=== PATIENT | male | born 1985 | race African-American/Black ===

== ENCOUNTER 2016-11-25 22:12 | Emergency (ER) | payer MEDICAID ==
[~2016-11-25] VITALS: Ht 175.3 cm; Wt 75.3 kg
[2016-11-25 22:12] VITALS: BP_SYST 149
[2016-11-25] MEDS ORDERED: NACL 0.9% 1,000 ML IV ONE (22:30)
[2016-11-25 22:58] LABS: BASOPHILS % (AUTO) 0.5 % (0.0-2.0); EOSINOPHILS # (AUTO) 0.1 K/uL (0.0-0.4); EOSINOPHILS % (AUTO) 0.8 % (0.0-4.0); HEMATOCRIT 44.5 % (36-54); HEMOGLOBIN 14.6 g/dL (14.0-18.0); LYMPHOCYTES # (AUTO) 1.4 K/uL (1.0-5.5); LYMPHOCYTES % (AUTO) 17.5 % (20.5-51.5); MEAN CORPUSCULAR HEMOGLOBIN 28 pg (27-31); MEAN CORPUSCULAR HGB CONC 33 % (32-36); MEAN CORPUSCULAR VOLUME 86 fL (79.0-98.0); MONOCYTES # (AUTO) 0.7 K/uL (0.0-1.0); MONOCYTES % (AUTO) 8.3 % (1.7-9.3); NEUTROPHILS # (AUTO) 5.8 K/uL (1.8-7.7); NEUTROPHILS % (AUTO) 72.9 % (40.0-70.0); PLATELET COUNT (AUTO) 232 K/uL (130-430); RED BLOOD CELL COUNT(AUTO) 5.17 MIL/uL (4.2-6.2); RED CELL DISTRIBUTION WIDTH 12.4 % (9.0-15.0)
[2016-11-25 23:02] LABS: BILIRUBIN,URINE NEGATIVE (NEGATIVE); CLARITY/URINE CLEAR (CLEAR); COLOR,URINE YELLOW (YELLOW); GLUCOSE,URINE NEGATIVE (NEGATIVE); KETONES,URINE NEGATIVE (NEGATIVE); LEUKOCYTE ESTERASE ,URINE NEGATIVE (NEGATIVE); NITRITE, URINE NEGATIVE (NEGATIVE); PROTEIN URINE NEGATIVE (NEGATIVE); UROBILINOGEN,URINE 0.2 (0.2-1.0)
[2016-11-25 23:06] LABS: BLOOD, URINE TRACE (NEGATIVE)
[2016-11-25 23:14] LABS: BACTERIA,URINE RARE /HPF (None Seen); MUCUS,URINE None Seen /LPF (None Seen); RBC,URINE 0-3 /HPF (0-3); WBC,URINE 0-3 /HPF (0-3)
[2016-11-25 23:18] LABS: ANION GAP 5 (5-15); CHLORIDE 103 mmol/L (98-107); CREATININE 1.14 mg/dL (0.55-1.30); GLUCOSE 95 mg/dL (70-99); SODIUM SERUM 139 mmol/L (136-145); UREA NITROGEN, BLOOD 7 mg/dL (8-21)
[2016-11-25 23:21] LABS: PROTHROMBIN TIME 10.9 SECS (9.5-12.5)
[2016-11-25 23:22] LABS: BARBITURATE, URINE NEGATIVE (NEG <=200); BENZODIAZEPINE, URINE NEGATIVE (NEG <=150); CANNABINOID, URINE POSITIVE (NEG <=50); COCAINE, URINE NEGATIVE (NEG <=150); METHAMPHETAMINES SCREEN,URINE POSITIVE (NEG <=500); OPIATE, URINE NEGATIVE (NEG <=100); PHENCYCLIDINE SCREEN,URINE NEGATIVE (NEG <=25); UR TRICYCLIC ANTIDEPRESSANTS NEGATIVE (NEG <=300); URINE AMPHETAMINE POSITIVE (NEG <=500); URINE METHADONE NEGATIVE (NEG <=200); URINE OXYCODONE SCREEN NEGATIVE (NEG <=100); URINE PROPOXYPHENE SCREEN NEGATIVE (NEG <=300)
[2016-11-25 23:23] LABS: POTASSIUM 2.8 mmol/L (3.5-5.1)
[2016-11-25 23:24] LABS: GFR AFRICAN AMERICAN 96 mL/min (>90)
[2016-11-25] MEDS ORDERED: POTASSIUM CHLORIDE 20 MEQ/PKT PACKET PO ONE (23:30)
[2016-11-25 23:47] LABS: ACETAMINOPHEN < 1 ug/mL (1-30); ALANINE AMINOTRANSFERASE 32 U/L (12-78); ALBUMIN 4.1 g/dL (3.4-4.8); ASPARTATE AMINOTRANSFERASE 80 U/L (10-37); TOTAL BILIRUBIN 0.6 mg/dL (0.0-1.0)
[2016-11-25 23:48] LABS: ALCOHOL, BLOOD < 3 mg/dL (<10)
[2016-11-25 23:49] LABS: CKMB RELATIVE INDEX 0.1 (0.0-2.9); CREATINE KINASE MB 3.4 ng/mL (0-3.6)
[2016-11-26 00:10] VITALS: BP_SYST 145
== END 2016-11-26 00:10 | disposition home or self-care (01) ==
LOC: SED 22:12
DX: F23 Brief psychotic disorder (principal); F41.9 Anxiety disorder, unspecified; R79.1 Abnormal coagulation profile
CPT/HCPCS: 36415; 80053; 80307; 81000; 82550; 82553; 84484; 85025; 85610; 85730; 93005; 96360; 99285; G0480; G0481; G0482; J7030